=== PATIENT | male | born 1940 | race Caucasian/White ===

== ENCOUNTER 2022-09-10 16:11 | Inpatient (IN) | payer BC ==
[~2022-09-10] VITALS: Ht 182.9 cm; Wt 90.7 kg
--- NOTE | 2022-09-10 00:28 | NUR ---
2320 patient transfered to icu bed 7 on n[address]
--- NOTE | 2022-09-10 16:15 | NUR ---
PT ARRIVED ON NONREBREATHER. DOCTOR AT BEDSIDE, BIPAP RECOMMENDED AND FOLLOW UP ABG ORDERED.
[2022-09-10 16:32] VITALS: BP 120/34
[2022-09-10 16:42] VITALS: BP 148/148
[2022-09-10] MEDS ORDERED: NACL 0.9% 1,000 ML IV ONE ×2 (17:00→20:05)
--- NOTE | 2022-09-10 17:34 | NUR ---
AWAKE IN BED, NO ATTEMPTS TO PULL LINES AND TUBES.
--- NOTE | 2022-09-10 18:36 | NUR ---
UNABLE TO DRAW 2ND ABG. DR NUÑEZ IS AWARE. SAID TO JUST TITRATE FIO2 ON BIPAP
[2022-09-10 18:37] VITALS: BP 108/42
--- NOTE | 2022-09-10 18:58 | NUR ---
DR NUÑEZ AT BEDSIDE FOR CENTRAL LINE PLACEMENT. PT IS A DIFFICULT BLOOD DRAW.
--- NOTE | 2022-09-10 19:13 | NUR ---
[facility] [phone]
--- NOTE | 2022-09-10 19:20 | NUR ---
blood was sent to lab.
--- NOTE | 2022-09-10 19:30 | NUR ---
called the facility for allergy status
[2022-09-10 19:36] LABS: HEMATOCRIT 39.2 % (36-52); HEMOGLOBIN 12.7 g/dL (12.0-18.0); MEAN CORPUSCULAR HEMOGLOBIN 30 pg (27-31); MEAN CORPUSCULAR HGB CONC 32 g/dL (33-37); MEAN CORPUSCULAR VOLUME 91.3 fL (80-94); PLATELET COUNT (AUTO) 337 K/uL (140-450); RED BLOOD CELL COUNT(AUTO) 4.29 MIL/uL (4.20-6.10); RED CELL DISTRIBUTION WIDTH 15.5 % (11.6-13.7)
[2022-09-10 19:37] LABS: WHITE BLOOD COUNT (AUTO) 26.6 K/uL (4.8-10.8)
[2022-09-10] MEDS ORDERED: VANCOMYCIN 1,000 MG in DEXTROSE 5% 250 ML IV ONE (19:45)
[2022-09-10] MEDS ORDERED: PIPERACILLIN/TAZOBACTAM 3.375 GM in DEXTROSE 5% 50 ML IV ONE (19:45)
[2022-09-10] MEDS ORDERED: CEFEPIME 1,000 MG in DEXTROSE 5% 50 ML IV ONE (19:55)
[2022-09-10] MEDS ORDERED: VANCOMYCIN 1,000 MG VIAL ONE (19:58)
[2022-09-10 19:59] LABS: ALBUMIN 2.2 g/dL (3.4-5.0); ANION GAP 13.8 (8-16); ASPARTATE AMINOTRANSFERASE 30 U/L (15-37); CARBON DIOXIDE 28.1 mmol/L (21-32); CHLORIDE 99 mmol/L (98-107); CREATININE 1.3 mg/dL (0.6-1.3); GLUCOSE 165 mg/dL (74-106); POTASSIUM 3.9 mmol/L (3.5-5.1); SODIUM SERUM 137 mmol/L (136-145); TOTAL BILIRUBIN 0.8 mg/dL (0.0-1.0); UREA NITROGEN, BLOOD 17 mg/dL (7-18)
[2022-09-10] MEDS ORDERED: CEFEPIME 1,000 MG VIAL ONE (19:59)
--- NOTE | 2022-09-10 20:01 | NUR ---
LOWERED FIO2 TO 80%
[2022-09-10 20:02] LABS: LYMPHOCYTES % (MANUAL) 3 % (20-46); METAMYELOCYTES % 1 % (0-0); MONOCYTES % (MANUAL) 2 % (5-12); PROMYELOCYTES % 1 % (0-0)
--- NOTE | 2022-09-10 21:20 | NUR ---
2100 transfered pt to catscan on nrb mask.pt was stable during cat scan. placed pt back on bipap same settings. ipap 10 epap 5 rr 14 80% fio2. sats 100%
[2022-09-10] MEDS ORDERED: CELE200C PO (21:43)
[2022-09-10] MEDS ORDERED: IPRA3AMP2 IH (21:43)
[2022-09-10] MEDS ORDERED: ACET-2619 PO (21:43)
[2022-09-10] MEDS ORDERED: IBUP100T49 PO (21:43)
[2022-09-10] MEDS ORDERED: MULT-2247 PO (21:43)
[2022-09-10] MEDS ORDERED: ENAL5TAB48 PO (21:43)
[2022-09-10] MEDS ORDERED: DIVA250T PO (21:43)
[2022-09-10] MEDS ORDERED: OSC500 PO (21:43)
[2022-09-10] MEDS ORDERED: LACT-58 PO (21:43)
[2022-09-10] MEDS ORDERED: ATI.5 PO (21:43)
[2022-09-10 21:54] VITALS: BP 86/55
[2022-09-10] MEDS ORDERED: DEXT 5% /NACL 0.9% 1,000 ML IV SCH (22:00)
[2022-09-10] MEDS ORDERED: NOREPINEPHRINE 8 MG in DEXTROSE 5% 250 ML IV PRN (22:00)
[2022-09-10] MEDS ORDERED: POTASSIUM CHLORIDE 10 MEQ TABER PO PRN (22:00)
[2022-09-10] MEDS ORDERED: ACETAMINOPHEN 325 MG TAB PO PRN (22:00)
[2022-09-10] MEDS ORDERED: guaiFENesin DM 200/20 MG-10 ML 10 ML UDC PO PRN (22:00)
[2022-09-10] MEDS ORDERED: ONDANSETRON 4 MG/2 ML VIAL IM/IVP PRN (22:00)
[2022-09-10] MEDS ORDERED: DOCUSATE SODIUM 100 MG GELCAP PO PRN (22:00)
[2022-09-10] MEDS ORDERED: ZOLPIDEM 5 MG TAB PO PRN (22:00)
[2022-09-10] MEDS ORDERED: HYDROcodone/APAP 7.5/325 MG 1 TAB PO PRN (22:00)
[2022-09-10] MEDS ORDERED: CLINDAMYCIN 900MG/D5W PM 50 ML IV SCH (22:05)
[2022-09-10] MEDS ORDERED: LEVOFLOXACIN 750 MG/D5W PREMIX 150 ML IV SCH ×2 (22:05→23:00)
[2022-09-10] MEDS ORDERED: ASCO-5 PO (22:07)
[2022-09-10] MEDS ORDERED: ALBUTEROL SULFATE/IPRATROPIU 3 ML SOL IH PRN (22:10)
--- NOTE | 2022-09-10 22:10 | NUR ---
Pt has episode vomiting. Md notified.
[2022-09-10] MEDS ORDERED: ONDANSETRON 4 MG/2 ML VIAL IVP PRN (22:20)
[2022-09-10 22:28] LABS: PROTHROMBIN TIME 12.5 secs (10.8-13.4)
[2022-09-10 22:29] LABS: CHOL/HDL RATIO 2.9 (1-4.5); FREE T4 (FREE THYROXINE) 1.89 ng/dL (0.76-1.46); PHOSPHORUS 4.8 mg/dL (2.5-4.9); THYROID STIMULATING HORMONE 2.69 uIU/mL (0.34-3.74)
--- NOTE | 2022-09-10 22:58 | NUR ---
Patient will be admitted to [facility]. Admited to [facility]. Will go to room 7. Belongings list completed. Report to guerrero.
[2022-09-10 23:00] VITALS: BP 161/51
[2022-09-10] MEDS ORDERED: NOREPINEPHRINE 4 MG in DEXTROSE 5% 250 ML IV PRN (23:45)
[2022-09-10] MEDS ORDERED: CLINDAMYCIN 900 MG/6 ML VIAL IV ONE (23:54)
[2022-09-11] VITALS: BP 95/41
[2022-09-11] MEDS ORDERED: ROCURONIUM 50 MG/5 ML VIAL IV ONE (00:15)
[2022-09-11] MEDS ORDERED: ETOMIDATE 20 MG/10 ML VIAL IVP ONE (00:15)
[2022-09-11] MEDS ORDERED: PROPOFOL 1000 MG/100 ML PREMIX 100 ML IV ONE (00:21)
--- NOTE | 2022-09-11 00:27 | NUR ---
2200 patient vomitted while on bipap. took patient off and sxned large amounts of coffee ground looking secretions. placed patient on nrb mask 100% fio2.
--- NOTE | 2022-09-11 00:31 | NUR ---
233Gisella attempted to get an abg but was unsuccessful also ryan baeza tried unsuccessful. patients sats were dropping and notified er dr to come intubate.
--- NOTE | 2022-09-11 00:33 | NUR ---
0000 pt intubated with size 8 tube at 23 lip. placed pt on carescape vent ac 16 vt 500 peep 5 and fio2 100%. pt sxned small amt of coffee ground secretions
[2022-09-11] MEDS ORDERED: NOREPINEPHRINE 4 MG/4 ML VIAL IV ONE (00:45)
[2022-09-11 01:00] VITALS: BP 39/30
--- NOTE | 2022-09-11 01:33 | NUR ---
2330- PT WAS ADMITTED [facility] DUE TO RESP FAILURE, PNA, ALOC WITH DIAGNOSIS OF SEPSIS. pTWAS CONFUSED AND GURGLING SOUND ON UPPER RESP . ANDWAS TACHY WITH NO FEVER
--- NOTE | 2022-09-11 01:36 | NUR ---
AT 2241- PT LACTIC ACID WAS 6.4 AND REPORTED TO AND ORDERED TO GIVE ANTIBIOTICS RIGHT AWAY
--- NOTE | 2022-09-11 01:37 | NUR ---
0115 [facility] CALLED. CPR AND BAGGING PATIENT WAS DONE. ACLS DRUGS GIVEN. PT
--- NOTE | 2022-09-11 01:39 | NUR ---
1210- PT WAS INTUBATED BY ER md dr lee. restraint applied both wrist- restless.
--- NOTE | 2022-09-11 01:40 | NUR ---
Profopol was started at 5 mcg/kg/ min
--- NOTE | 2022-09-11 01:42 | NUR ---
BP was low57/40, profopol was stopped and started levophed at 2mcg/kg/hr
--- NOTE | 2022-09-11 01:43 | NUR ---
at 0110 am monitor shows severe shital 34 so 1 amp of atropine was givem IVp
--- NOTE | 2022-09-11 01:44 | NUR ---
at 0115 am pt is pulseless and very white and sinus shital . [facility] was called
--- NOTE | 2022-09-11 01:50 | NUR ---
[id number] am niru russell was called to inform of the pt but no one answers so message left
--- NOTE | 2022-09-11 01:56 | NUR ---
at 0158 [facility] was called and pt is not a candidate
--- NOTE | 2022-09-11 02:05 | NUR ---
at 0205 am marine engineer was called
--- NOTE | 2022-09-11 06:33 | NUR ---
0430- post mortem care done and brought the body to [id number]
--- NOTE | 2022-09-11 06:35 | NUR ---
0630 oral care done .Mitali Gil CALLED AND UPDATED HER THAT PT AT 0125 AND BELONGING WAS WITH BODY A BLACK T SHIRT AND UPPER AND LOWER DENTURES
[2022-09-11] MEDS ORDERED: ALBUTEROL SULFATE/IPRATROPIU 3 ML SOL IH SCH (07:00)
[2022-09-11] MEDS ORDERED: PANTOPRAZOLE 40 MG TABEC PO SCH (09:00)
[2022-09-12 08:08] LABS: T4 (THYROXINE) 8.1 ug/dL (4.5-12.0)
== END 2022-09-11 01:25 | DRG 871 ==
LOC: MED 16:11 → MIC 21:50
PROVIDERS: ADMIT Family Medicine; ATTEND Family Medicine
PROC: 06HY33Z Insertion of Infusion Device into Lower Vein, Percutaneous Approach (ICD-10-PCS; principal; 2022-09-10)
PROC: B54CZZA Ultrasonography of Left Lower Extremity Veins, Guidance (ICD-10-PCS; 2022-09-10)
PROC: 0BH17EZ Insertion of Endotracheal Airway into Trachea, Via Natural or Artificial Opening (ICD-10-PCS; 2022-09-10)
PROC: 5A1935Z Respiratory Ventilation, Less than 24 Consecutive Hours (ICD-10-PCS; 2022-09-10)
DX: A41.9 Sepsis, unspecified organism (principal); E43 Unspecified severe protein-calorie malnutrition; J69.0 Pneumonitis due to inhalation of food and vomit; R65.21 Severe sepsis with septic shock; J96.00 Acute respiratory failure, unspecified whether with hypoxia or hypercapnia; U07.1 COVID-19; I46.9 Cardiac arrest, cause unspecified; E78.2 Mixed hyperlipidemia; I10 Essential (primary) hypertension; I25.2 Old myocardial infarction; Z88.0 Allergy status to penicillin; Z88.8 Allergy status to other drugs, medicaments and biological substances; Z79.899 Other long term (current) drug therapy; Z68.27 Body mass index [BMI] 27.0-27.9, adult
CPT/HCPCS: 31500; 36415; 36600; 70450; 71045; 71275; 80053; 82150; 82803; 83036; 83605; 83690; 83735; 83880; 84100; 84436; 84439; 84443; 84479; 84484; 85025; 85610; 85730; 87040; 92950; 93005; 94002; 94660; 96361; 96365; 96368; 99291; J0692; J1956; J2405; J2704; J3370; J3490; Q0092; Q9967